=== PATIENT | female | born 1965 | race Two or more races ===

== ENCOUNTER 2017-02-12 15:11 | Emergency (ER) | payer SELFPAY ==
[~2017-02-12] VITALS: Ht 154.9 cm; Wt 61.2 kg
--- NOTE | 2017-02-12 15:35 | Emergency Room Report ---
History of Present Illness General Chief Complaint: Alcohol Intoxication Source: Patient Present Illness HPI The patient is a 51-year-old female brought in by ambulance for alcohol intoxication. The patient states that she drank 2 whole cup so of vodka today. The patient denies any self harm or suicidal ideation. She denies any symptoms including pain. Allergies: Coded Allergies: No Known Allergies (Unverified , 02/12/17) Patient History Past Medical History: see triage record Past Surgical History: none Social History: Reports: alcohol use Last Menstrual Period: post Now: No : 0 Para: 0 Reviewed Nursing Documentation: PMH: Agreed, PSxH: Agreed Nursing Documentation-PMH Past Medical History: No History, Except For Review of Systems All Other Systems: negative except mentioned in HPI Physical Exam Vital Signs Date Time Temp Pulse Resp B/P Pulse Ox O2 Delivery O2 Flow Rate FiO2 02/12/17 15:06 98.8 63 16 147/78 98 Room Air Sp02 EP Interpretation: reviewed, normal General Appearance: no apparent distress, alert, GCS 15, non-toxic Head: normocephalic, atraumatic Eyes: bilateral eye PERRL, bilateral eye normal inspection Neck: full range of motion, supple/symm/no masses Respiratory: chest non-tender, lungs clear, normal breath sounds, speaking full sentences Cardiovascular #1: regular rate, rhythm, no edema Gastrointestinal: normal bowel sounds, non tender, soft, non-distended, no guarding, no rebound Musculoskeletal: back normal, gait/station normal, normal range of motion, non- tender Neurologic: alert, responsive, motor strength/tone normal, sensory intact Psychiatric: no suicidal/homicidal ideation Skin: normal color, no rash, warm/dry, well hydrated Lymphatic: no adenopathy Medical Decision Making PA Attestation Dr. King is my supervising physician. Patient management was discussed with my supervising physician Diagnostic Impression: Primary Impression: Acute alcoholic intoxication Qualified Codes: F10.120 - Alcohol abuse with intoxication, uncomplicated ER Course The patient is a 51-year-old female brought in by ambulance for alcohol intoxication DDx considered but not limtied to: acute alcohol intoxication, hepatic encephalopathy, drug overdose, hypoglycemia, psychosis Physical exam: Vitals are within normal limits. No apparent distress. Patient is lethargic. Head is normocephalic atraumatic. Pupils are equally round and reactive to light The patient is arousable by touch or name. Lungs are clear to auscultation bilaterally. No abnormal tenderness. Abdomen is soft. Otherwise exam is unremarkable The patient is given time to rest in the emergency department. The patient is able to ambulate well and is asking to leave at this time. The patient is alert and oriented. The patient be discharged home and given ER precautions. Patient was given advice on alcohol addiction Last Vital Signs Date Time Temp Pulse Resp B/P Pulse Ox O2 Delivery O2 Flow Rate FiO2 02/12/17 15:06 98.8 63 16 147/78 98 Room Air Status: improved Disposition: HOME, SELF-CARE Condition: Improved KIT RILEY Feb 12, 2017 15:35
[2017-02-12 18:00] VITALS: BP 103/65
[2017-02-12 18:05] VITALS: BP 147/78
== END 2017-02-12 18:05 | disposition home or self-care (01) ==
LOC: EDBD 15:11 → EMR 16:24
DX: F10.120 Alcohol abuse with intoxication, uncomplicated (principal)
CPT/HCPCS: 99284